=== PATIENT | female | born 1965 | race Caucasian/White ===

== ENCOUNTER 2019-12-30 10:24 | Outpatient (NON) | payer OTHER, SELFPAY ==
[2019-12-31 14:58] LABS: SARS-CoV-2 RNA PCR Negative
== END 2019-12-30 10:25 ==
PROVIDERS: Visit Provider Clinical Nurse Specialist
DX: R05 Cough (principal); Z20.828 Contact with and (suspected) exposure to other viral communicable diseases
CPT/HCPCS: 87635; C9803; U0003

== ENCOUNTER 2020-07-14 11:04 | Outpatient (NON) | payer OTHER, SELFPAY ==
[2020-07-14 14:14] LABS: Influenza Control Positive
[2020-07-14 22:34] LABS: SARS-CoV-2 RNA PCR Positive
== END 2020-07-14 11:05 ==
LOC: ANHCOVIDDT 11:05
PROVIDERS: PCP Internal Medicine; Visit Provider Clinical Nurse Specialist
DX: R09.81 Nasal congestion (principal); U07.1 COVID-19
CPT/HCPCS: 87804; C9803; U0003; U0005

== ENCOUNTER 2020-12-17 14:21 | Outpatient (CLI) | payer OTHER, SELFPAY ==
--- NOTE | ~2020-12-17 | XR_ITS ---
EXAMINATION: XR foot RT min 3V DATE: 12/17/2020 14:35 INDICATION: Right foot pain. TECHNIQUE: 4 views of right foot were obtained. COMPARISON: None. FINDINGS: Bone alignment is normal. No fracture. There is moderate osteoarthritis of first metatarsop halangeal joint. There is an old healed fracture of head of fourth proximal phalanx. There is an enth esophyte at plantar aspect of calcaneal tuberosity. IMPRESSION: 1. Moderate osteoarthritis of first metatarsophalangeal joint. Reviewed, dictated and finalized at location A.
== END 2020-12-17 14:22 | disposition home or self-care (01) ==
LOC: ANHIMG 14:25
PROVIDERS: PCP Internal Medicine; Visit Provider Nurse Practitioner
DX: M19.071 Primary osteoarthritis, right ankle and foot (principal)
CPT/HCPCS: 73630

== ENCOUNTER 2024-01-15 14:41 | Outpatient (RCR) | payer OTHER, SELFPAY ==
--- NOTE | 2024-01-15 15:42 | PTOPEVAL1 ---
Assessment and note entered by Binh Bradshaw, PT, DPT Evaluation Information Assessment Status Evaluation Diagnosis low back pain ICD-10 Condition Codes (PT) Pain in low back M54.50 Onset 2-3 months Subjective Information Pt reports low back pain for the last couple of months, centralized in her R lower back. She likes to exercise 2-3 times a week. She states she has had this pain before, she declines radiating symptoms. 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 Reported Pain Level Pain Score 2: Self Report Assessment PT Clinical Summary Christina presents to therapy today with a diagnosis of low back pain. Upon evaluation, she demonstrates a minor decrease in R hip strength and core strength. She also demonstrates minor asymmetries in her pelvic alignment that self corrected with muscle energy techniques. She was issued an HEP to improve hip and core stability. She elected to work on her HEP independently and will follow up if needed. Plan of Care Interventions Therapeutic Activities,Therapeutic Exercise PT Services Indicated Yes Treatment Frequency and follow up if needed Duration These treatments will address the objective and functional deficits as defined above. The patient will be advanced safely and appropriately in order for the patient to progress towards his/her prior level of function. Additional exercises will be introduced and as well as a comprehensive home exercise program upon discharge, if needed, ?to ensure carryover of functional gains achieved in the clinic. This treatment plan has been reviewed and agreement upon by the patient.
--- NOTE | 2024-04-02 09:30 | PTOPDC ---
Assessment and note entered by Binh Bradshaw, PT, DPT Evaluation Information Assessment Status Discharge - Pt Not Present Diagnosis low back pain ICD-10 Condition Codes (PT) Pain in low back M54.50 Onset 2-3 months Subjective Information Called pt to follow up, states she is doing her exercises daily and is doing great. Does not need any additional therapy. Assessment PT Clinical Summary Pt will be discharged per her request.
== END 2024-04-02 13:37 | disposition home or self-care (01) ==
LOC: ANHGOSHPT 14:41
PROVIDERS: PCP Internal Medicine; Visit Provider Nurse Practitioner
DX: M54.50 Low back pain, unspecified (principal)
CPT/HCPCS: 97110; 97161

== ENCOUNTER 2024-02-13 05:59 | Day surgery (SDC) | payer OTHER, SELFPAY ==
[2024-01-04 13:32] VITALS: BMI 26.9
[2024-01-31 11:50] VITALS: BMI 26.4
--- NOTE | 2024-02-06 11:04 | PM.HPGS ---
History of Present Illness History of Present Illness Consent: Risks, benefits, and alternatives have been discussed and questions answered. Patient agrees to proceed with procedure. Chief complaint: Neoplasm screening Narrative: Christina June is a 58 year old female who is referred for colon cancer screening. Review of Systems Review of Systems: All systems reviewed & are unremarkable except as noted in HPI and below PMFSH Past Medical History Medical History Stress fracture right leg Surgical History Surgical History Delivery by section H/O: hysterectomy Social History Social History Smoking status: Former smoker Tobacco type: cigarettes Smoking end date: 06/26/84 Alcohol intake: current Alcohol use details: OCCASIONAL Substance use type: does not use Living arrangements: with family Spiritual care concerns: No Meds Home Medications and Allergies Home Medications Medication Instructions Recorded Confirmed Type estradiol 0.1 mg/24 hr weekly 1 patch transdermal .2xweek 06/11/02/13/24 History transdermal patch cholecalciferol (vitamin D3) 50 50 mcg PO DAILY 01/05/21 02/13/24 History mcg (2,000 unit) capsule magnesium 500 mg tablet 500 mg PO DAILY 01/31/24 02/13/24 History mecobalamin (vitamin B12) 2,500 2,500 mcg PO DAILY 01/31/24 02/13/24 History mcg chewable tablet Allergies Allergy/AdvReac Type Severity Reaction Status Date / Time Penicillins Allergy Unknown Rash Verified 02/13/24 06:12 Exam Resp: Auscultation: clear to auscultation bilaterally Cardio: Rate: regular rate Rhythm: regular rhythm GI: GI Palp: Yes Soft to palpation and No Tenderness to palpation present (GI) Assessment and Plan Assessment and plan (1) Screening for colon cancer: Code(s): Z12.11 - Encounter for screening for malignant neoplasm of colon Status: Acute Assessment and Plan: Colonoscopy with possible biopsy or polypectomy or cautery or injection of substances.
--- NOTE | 2024-02-12 12:37 | WPDANESEPPF ---
Anes - Initial Pre Proc Eval Procedure: Operation Date: 02/13/24 07:30 Proposed Procedures p Screening Colonoscopy - Rodrigo Johnston MD Date/Time: 02/12/24 12:37 Surgeon: Rodrigo Johnston MD Pre Op Diagnosis: Neoplasm screening Patient Data Age: 58 Gender: F Height: 1.63 m Weight: 70 kg Allergies Allergy/AdvReac Type Severity Reaction Status Date / Time Penicillins Allergy Unknown Rash Verified 02/13/24 06:12 Home Medications Medication Instructions Recorded Confirmed Type estradiol 0.1 mg/24 hr weekly 1 patch transdermal .2xweek 06/11/19 02/13/24 History transdermal patch cholecalciferol (vitamin D3) 50 50 mcg PO DAILY 01/05/21 02/13/24 History mcg (2,000 unit) capsule magnesium 500 mg tablet 500 mg PO DAILY 01/31/24 02/13/24 History mecobalamin (vitamin B12) 2,500 2,500 mcg PO DAILY 01/31/24 02/13/24 History mcg chewable tablet Patient hx anesthesia problems: none Family hx anesthesia problems: none Results Review: All pre-operative results and documents have been reviewed as part of the pre-operative evaluation. [facility] Past Medical History Medical History Stress fracture right leg Surgical History Surgical History Delivery by section H/O: hysterectomy Social History Social History Smoking status: Former smoker Tobacco type: cigarettes Smoking end date: 06/26/84 Alcohol intake: current Alcohol use details: OCCASIONAL Substance use type: does not use Living arrangements: with family Spiritual care concerns: No Anes - Eval Final PreProcedure Day of Procedure Patient weight: overweight Heart: regular rate and rhythm Lungs: clear to auscultation Airway: Mallampati scale class II Neurological: alert and oriented Last oral intake: >/= 8 hours ASA classification: II Emergent: no Anesthetic plan: proceed Anesthesia type and monitoring: general GIVS and standard monitoring
[2024-02-13 06:19] VITALS: BP 141/81; PULSE 71; RESP 16; TEMP 36.9; O2SAT 100; BMI 26.5
[2024-02-13] MEDS: LACTATED RINGERS 1,000 ML 150 ML IV CONT (06:31)
[2024-02-13 07:42] VITALS: BP 105/65; PULSE 67; RESP 15; O2SAT 98
[2024-02-13 07:52] VITALS: BP 105/69; PULSE 61; RESP 16; O2SAT 98
[2024-02-13 08:02] VITALS: BP 107/68; PULSE 54; RESP 16; O2SAT 100
--- NOTE | 2024-02-13 10:12 | WPDANESPN ---
Anes - Prog Note Post-Op Date/Time: 02/13/24 10:12 Cardiovascular status: normal Respiratory status: normal Airway patency: baseline Mental status: baseline Post-Op hydration status: normal Vital Signs: Last Vital Signs Temp 36.9 C 02/13/24 06:19 Pulse 54 L 02/13/24 08:02 Resp 16 02/13/24 08:02 BP 107/68 02/13/24 08:02 Pulse Ox 100 02/13/24 08:02 O2 Del Method Room Air 02/13/24 08:02 Pain Score (VAS): 0 I/O: Intake & Output 02/12/24 02/13/24 02/13/24 23:59 07:59 15:59 Intake Total 550 Balance 550 Post-procedural complaints: none Patient Feedback: Patient satisfied with anesthetic care. Other Findings: Patient vital signs back to baseline. Patient denies nausea and vomiting. Patient's pain under control. Patient OK for discharge.
== END 2024-02-13 08:14 | disposition home or self-care (01) ==
PROVIDERS: PCP Internal Medicine; Visit Provider Internal Medicine Gastroenterology
PROC: 0DJD8ZZ Inspection of Lower Intestinal Tract, Via Natural or Artificial Opening Endoscopic (ICD-10-PCS; CPT 45378; principal; 2024-02-13 07:30)
DX: Z12.11 Encounter for screening for malignant neoplasm of colon (principal)
CPT/HCPCS: 45378